=== PATIENT | male | born 1945 | race Caucasian/White ===

== ENCOUNTER 2016-11-30 09:36 | Emergency (ER) | payer MEDICARE, OTHER ==
[~2016-11-30 09:36] MED LIST: ALBUTEROL0.63 MG/3 NEB; CLARITIN10 MG PO; COLACE100 MG PO; COUMADIN3 MG PO; COUMADIN6 MG PO; HYDROCODON-ACE1 EAC6 PO; KLOR-CON 88 MEQ PO; LASIX20 MG PO; LEVAQUIN500 MG PO; LEVAQUIN750 MG PO; MUCINEX600 MG PO; NEURONTIN800 MG PO; PREDNISONE10 MG PO; PRILOSEC20 MG PO; SPIRIVA18 MCG INH; SYMBICORT 16060 PUFF INH; TESSALON PERLE100 MG PO; TRAZODONE HCL150 MG PO; TYLENOL325 M1 PO; VIBRAMYCIN100 MG PO; ZESTRIL5 MG PO
[2016-11-30 10:16] LABS: BASO % 0.2 % (0.2-1.2); EOS # 0.2 10_X3_uL (0.0-0.5); EOS % 2.1 % (0.8-7.0); GRAN # 5.7 10_X3_uL (1.8-5.4); GRAN % 65.9 % (34.0-67.9); HEMATOCRIT 37.5 % (40-51); LYMPH # 1.9 10_X3_uL (1.3-3.6); LYMPH % 22.4 % (21.8-53.1); MEAN CORPUSCULAR HEMOGLOBIN 26.9 pg (27.0-33.0); MEAN CORPUSCULAR VOLUME 84.1 fL (79-92); MEAN PLATELET VOLUME 9.6 fl (7.5-11.5); MONO # 0.8 10_X3_uL (0.3-0.8); MONO % 9.4 % (5.3-12.2); PLATELET COUNT 209 x10_3/uL (163-337); RED BLOOD COUNT 4.46 x10_6/uL (4.6-6.1); RED CELL DISTRIBUTION WIDTH 17.1 % (11.6-14.4); WHITE BLOOD COUNT 8.6 x10_3/uL (4.2-9.1)
[2016-11-30 10:32] LABS: ALBUMIN 3.9 gm/dL (3.4-5.0); ALKALINE PHOSPHATASE 65 U/L (50-136); ALT/SGPT 7 U/L (7.53-40.17); AMYLASE 35 U/L (15.62-74.58); AST/SGOT 10 U/L (6.66-35.34); BILIRUBIN,TOTAL 0.45 mg/dL (0.0-1.0); BLOOD UREA NITROGEN 13 mg/dL (7-18); CALCIUM 9.5 mg/dL (8.7-10.7); CARBON DIOXIDE 24 mmol/L (21-32); GLUCOSE,RANDOM 125 mg/dL (70-99); LIPASE 17 U/L (6.75-60.75); SODIUM 139 mmol/L (136-145); TOTAL PROTEIN 6.3 gm/dL (6.4-8.2)
== END 2016-11-30 16:50 | disposition short-term general hospital (02) ==
LOC: ER 09:36
PROVIDERS: General Practice
DX: K80.10 Calculus of gallbladder with chronic cholecystitis without obstruction (principal); R07.89 Other chest pain; R10.13 Epigastric pain; R10.32 Left lower quadrant pain; R10.12 Left upper quadrant pain; R19.7 Diarrhea, unspecified; R00.1 Bradycardia, unspecified; E66.9 Obesity, unspecified; G89.29 Other chronic pain; M54.9 Dorsalgia, unspecified; I10 Essential (primary) hypertension; J44.9 Chronic obstructive pulmonary disease, unspecified; F17.210 Nicotine dependence, cigarettes, uncomplicated; Z79.899 Other long term (current) drug therapy; Z88.5 Allergy status to narcotic agent; Z79.01 Long term (current) use of anticoagulants
CPT/HCPCS: 36415; 80053; 82150; 83690; 85025; 93005; 96365; 96375; 99070; 99284; 99285-25; G0480; J7040; Q9967